=== PATIENT | female | born 1995 | race African-American/Black ===

== ENCOUNTER 2022-03-13 20:42 | Emergency (ER) | payer MEDICAID ==
[~2022-03-13] VITALS: Ht 177.8 cm; Wt 98.8 kg
[2022-03-13 21:12] VITALS: BP 115/70
[2022-03-13 22:04] LABS: CLARITY URINE CLEAR (CLEAR); COLOR URINE YELLOW (YELLOW); KETONES URINE TRACE (NEGATIVE); LEUKOCYTE ESTERASE URINE NEGATIVE (NEGATIVE); NITRITE URINE NEGATIVE (NEGATIVE); OCCULT BLOOD URINE TRACE (NEGATIVE); PROTEIN URINE NEGATIVE (NEGATIVE); SPECIFIC GRAVITY URINE 1.022 (1.005-1.030)
[2022-03-13] MEDS ORDERED: ACETAMINOPHEN 325MG TABLET PO PRN (23:45)
== END 2022-03-14 01:39 | disposition left against medical advice (07) ==
LOC: ER 20:42
DX: O20.9 Hemorrhage in early pregnancy, unspecified (principal); Z3A.01 Less than 8 weeks gestation of pregnancy
CPT/HCPCS: 76801; 81003; 81025; 99284